=== PATIENT | female | born 1940 | race Caucasian/White ===

== ENCOUNTER → 2016-08-10 | Outpatient (REF) ==
[~2016-08-10] MED LIST: ALLEGRA 180MG180 MG PO; AMBIEN 10MG10 MG PO; ASPIRIN E.C. 8181 MG PO; CALCIUM + D 6001 TA1 PO; CELEXA 20MG20 MG/TAB PO; CLARITIN 1010 MG/TAB PO; FLONASE NASAL S16 GM NS; FOSAMAX 70MG TA70 MG PO; HCTZ 25MG TAB25 MG PO; MULTIPLE VITAMI1 TAB PO; MULTIVITAMIN FO1 CAP PO; POLY IRON PN1 TAB PO; PRILOSEC 20MG20 MG PO; SYSTANE LUBRICAN5 ML OU; TOPROL XL 25MG25 MG PO; VITAMIN D1000 IU PO; ZESTRIL40 MG PO
== END ==
LOC: ZLAB.WCH 10:45
DX: Z01.89 Encounter for other specified special examinations (principal)

== ENCOUNTER → 2016-10-29 | Outpatient (REF) ==
[2016-10-29 11:20] LABS: TOTAL IRON BINDING CAPACITY 452 ug/dL (265-497)
[2016-10-29 11:47] LABS: FERRITIN 7 ng/mL (11-264)
== END ==
LOC: ZLAB.WCH 11:00
PROVIDERS: Internal Medicine
DX: Z01.89 Encounter for other specified special examinations (principal)

== ENCOUNTER → 2017-02-04 | Outpatient (REF) | LOC: ZLAB.WCH 15:48 | DX: Z01.89 Encounter for other specified special examinations (principal) ==

== ENCOUNTER → 2017-05-12 | Outpatient (REF) | LOC: ZLAB.WCH 18:04 | DX: Z01.89 Encounter for other specified special examinations (principal) ==

== ENCOUNTER 2019-07-24 11:06 | Inpatient (IN) | payer MEDICARE ==
[~2019-07-24] VITALS: Ht 162.6 cm; Wt 69.0 kg
[2019-07-25 10:59] VITALS: BP 141/50; PULSE 62; TEMP 97.7
[2019-07-25] MEDS ORDERED: HCTZ12.5TAB PO (11:04)
[2019-07-25] MEDS ORDERED: ZESTRIL 5MG5 MG PO (11:05)
[2019-07-25] MEDS ORDERED: LOVENOX 4040 MG/0.4 SQ (11:06)
[2019-07-25] MEDS ORDERED: PROTONIX 40MG T40 MG PO (11:07)
[2019-07-25] MEDS ORDERED: LIPITOR 10MG10 MG PO (11:07)
[2019-07-25] MEDS ORDERED: MIRALAX PA17 GM/Dose PO (11:08)
[2019-07-25] MEDS ORDERED: BENADRYL25 M2 PO (11:09)
[2019-07-25] MEDS ORDERED: DULCOLAX S10 MG/SUPP RC (11:09)
[2019-07-25] MEDS ORDERED: TYLENOL 325MG325 MG PO (11:10)
[2019-07-25] MEDS ORDERED: FERRO-TIME325 MG PO (11:12)
[2019-07-25] MEDS ORDERED: NATURAL C500 MG PO (11:12)
[2019-07-25] MEDS ORDERED: ALEVE 220MG220 MG PO (11:13)
[2019-07-25] MEDS ORDERED: SINGULAIR 110 MG/TAB PO ×2 (11:13→15:51)
[2019-07-25] MEDS ORDERED: CALCIUM 600600 M2 PO (11:15)
[2019-07-25] MEDS ORDERED: VITAMIN C500 MG PO ×2 (11:15→15:50)
--- NOTE | 2019-07-25 11:20 | NUR ---
Pt arrived to room 336 at this time via WC. She is A/O x4. Her breathing is even and unlabored on RA. Pt denies SOB. She doesn't currently report any pain. No N/V. She does have some N/T to L hand, though hand plugman and leg strength is equal and strong. Pt does drag her left foot slightly when ambulating. Walks with SBA, walker and gait belt. No skin breakdown visualized. Pt had medium loose bowel movement upon arrival, reports receiving Miralax this am d/t constipation. Water and tissue supplied. Pt has no further needs at this time. Call light within reach. Will continue to monitor.
[2019-07-25] MEDS ORDERED: CALCIUM CARBON650 M2 PO (15:50)
[2019-07-25] MEDS ORDERED: CLARISPRAY9.9 ML NS (15:50)
[2019-07-25] MEDS ORDERED: ASPIRIN 32325 MG/TAB PO (15:59)
[2019-07-25] MEDS ORDERED: TOPROL XL100 MG PO (15:59)
[2019-07-25 16:23] VITALS: BP 130/68; PULSE 58; TEMP 97.7
[2019-07-25 16:24] VITALS: BP 130/68; PULSE 58; TEMP 97.7
--- NOTE | 2019-07-25 17:54 | NUR ---
Pt resting in bed, was able to get around room with minimal assistance. Ate dinner without issues. Denies any pain or needs at this time. Call light within reach.
--- NOTE | 2019-07-25 19:30 | NUR ---
PATIENT RESTING IN BED DURING CHANGE OF SHIFT REPORT FROM DAY SHIFT NURSE. BED ALARM ON.
--- NOTE | 2019-07-25 21:15 | NUR ---
PATIENT REQUESTED BENADRYL FOR SLEEP. INFORMED THAT MEDS WAS NOT ORDERED BY PROVIDER. AGREED TO TAKE TYLENOL TO HELP WITH SLEEP. BED ALARM CONTINUES.
--- NOTE | 2019-07-26 00:56 | NUR ---
PATIENT RESTING WITH EYES CLOSED, DOES NOT AWAKEN WHEN ROOM ENTERED. BREATHING NONLABORED AND EVEN. BED ALARM ON.
[2019-07-26 04:44] VITALS: BP 132/62; PULSE 62; TEMP 97.6
--- NOTE | 2019-07-26 07:10 | NUR ---
PATIENT UP IN CHAIR DURING CHANGE OF SHIFT REPORT GIVEN TO DAY SHIFT NURSE. CHAIR ALARM ON.
--- NOTE | 2019-07-26 08:13 | NUR ---
Assessment completed, alert/oriented, vital signs stable, denies pain or discomfort, heart RRR/ distal pulses are palpable, lungs CTA, patient has mild left sided weakness / more noteable to lower extrm., she reports it is more of a gait/coordination issue as oppose to strength deficit, no other Neuro deficits noted, she is sitting up in the chair and has eaten breakfast, she has taken a.m meds and is now waiting to start therapies for the day, denies other needs at this time
--- NOTE | 2019-07-26 10:09 | NUR ---
RAMON met with the patient and her daughter, Nimo Aranda (ph#[phone]), to complete initial intake, as the patient is new to [facility]. The patient lives alone in [place]. Nimo states that she lives two miles away from her. The patient reports independence with ADLs before hospitalization and has a FWW and shower seat. The patient's PCP is Dr. Bernice Gardner and she receives her medications at [facility] or through a mail order. She reports no difficulties obtaining her meds. The patient's advanced directives are in EMR. Her DPOA-HC is her daughter, Nimo. SW to continue to follow to ensure a safe discharge.
--- NOTE | 2019-07-26 15:10 | NUR ---
RAMON met with the patient to present and review the IPR Team Conference Note. RAMON discussed the team's recommendation to re-eval next Wednesday with a tentative discharge date set for next Wednesday, 08/03, with likely outpatient services, but to still be determined. The patient was in agreeance to the plan. RAMON also discussed the team's recommendations of grab bars and possibly a cane. The patient verbalized understanding. RAMON then discussed setting up a patient/family meeting. The patient reports that her daughter, Nimo, is off next Wednesday and that Wednesday should work the best. A patient/family meeting was tentatively scheduled for next Wednesday, 08/01, at 1345. RAMON notified [facility] to follow up with the patient tomorrow to confirm meeting.
[2019-07-26 18:04] VITALS: BP 112/60; PULSE 60; TEMP 98.6
--- NOTE | 2019-07-26 19:00 | NUR ---
PATIENT UP IN CHAIR DURING CHANGE OF SHIFT REPORT FROM DAY SHIFT NURSE. CHAIR ALARM ON.
--- NOTE | 2019-07-27 | NUR ---
PATIENT SLEEPING, EYES CLOSED, DOES NOT AWAKEN WHEN DOOR TO ROOM OPENS, BREATHING NONLABORED AND EVEN. BED ALARM ON.
--- NOTE | 2019-07-27 04:00 | NUR ---
Patient sleeping, breathing nonlabored and even. Does not awaken when door to room opens. Bed alarm on.
[2019-07-27 04:27] VITALS: BP 130/58; PULSE 64; TEMP 97.2
--- NOTE | 2019-07-27 07:39 | NUR ---
Patient put up in recliner chair during change of shift report given to day shift nurse. Chair alarm on.
--- NOTE | 2019-07-27 10:05 | NUR ---
RAMON met with the patient and she confirmed that a patient/family meeting would work for her daughter next Wednesday, 08/01, at 1345. RAMON to continue to follow.
--- NOTE | 2019-07-27 11:48 | NUR ---
Bedside report from JULIAN Domínguez. 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 Denies dizziness. Takes pills whole one at a time with applesauce. Dentures and glasses in place, yellow gripper socks. Calls appropriately.
[2019-07-27 15:52] VITALS: BP 111/58; PULSE 56; TEMP 97.8
--- NOTE | 2019-07-27 19:56 | NUR ---
Pt had visitors today, denies pain, amb CGA with walker. Report to JULIAN Nicholas.
--- NOTE | 2019-07-27 21:00 | NUR ---
Shift assessment complete. Patient ambulated to BR with walker, gait belt, and assist x1. Denies pain. Daughter at bedside, helping her get ready for bed. Back to bed, SCD's on. Denies further needs at this time. Will continue to monitor.
--- NOTE | 2019-07-27 21:20 | NUR ---
Admission QIM scores were reviewed by the team. Code of 5 for eating was determined by team discussion to be the most usual performance before interventions for this patient during the assessment period. Code of 6 for oral hygiene was determined by team discussion to be the most usual performance before interventions for this patient during the assessment period. Code of 3 for toilet transfers was determined by team discussion to be the most usual performance before interventions for this patient during the assessment period. Code of 3 for sit to stand was determined by team discussion to be the most usual performance before interventions for this patient during the assessment period. Code of 3 for chair/bed to chair transfers was determined by team discussion to be the most usual performance before interventions for this patient during the assessment period. Code of 3 for walking 10 feet was determined by team discussion to be the most usual performance before interventions for this patient during the assessment period. Code of 88 for walking 150 feet was determined by team discussion to be the most usual performance before interventions for this patient during the assessment period. Code of 4 for toileting hygiene, lower body dressing, putting on/taking off footwear, rolling left to right, sit to lying, lying to sitting side of bed, and car transfers was determined by team discussion to be the most usual performance before interventions for this patient during the assessment period.
[2019-07-28 06:19] VITALS: BP 121/58; PULSE 60; TEMP 98.1
--- NOTE | 2019-07-28 11:12 | NUR ---
Pt denies pain, takes pills whole with applesauce, one at a time. Family visiting, daughter Nimo and granddaughter (18yo).
--- NOTE | 2019-07-28 14:08 | NUR ---
The patient's RN informed RAMON that the team is now anticipating that the patient will be able to discharge sooner than Wednesday. The patient's daughter, Nimo, would like to move up the family meeting to Wednesday, 07/30, at 1430. RAMON notified Beth WIGGINS, of this. The patient would also like to receive outpatient PT/OT at [facility]. RAMON will need to schedule appointments and will continue to follow.
[2019-07-28 16:51] VITALS: BP 97/75; PULSE 64; TEMP 98
--- NOTE | 2019-07-28 17:13 | NUR ---
Pt edu on being mod I in room tomorrow, verbalized understanding, no needs at this time. Informed of PCP appt and left msg for OP PT at [facility].
--- NOTE | 2019-07-28 19:24 | NUR ---
Bedside report to JULIAN Vasquez. Pt in chair, denies pain, shoes in place, male visitor.
[2019-07-28 20:00] VITALS: BP 133/58; PULSE 69; TEMP 98.6
--- NOTE | 2019-07-28 20:00 | NUR ---
Patient sitting up in recliner. Alert and oriented x 3. Assessment complete. Stand by assist to restroom. Patient dressed independently. Independent oral care. Steady gait with walker. Denies further needs at this time.
--- NOTE | 2019-07-29 03:39 | NUR ---
Patient has slept well throughout the night. Minimal needs.
[2019-07-29 04:58] VITALS: BP 128/72; PULSE 60; TEMP 97.8
--- NOTE | 2019-07-29 05:00 | NUR ---
pt handoff to this nurse around 0400. pt vss, has been sleeping. call light within reach, will continue to monitor
--- NOTE | 2019-07-29 08:47 | NUR ---
PT IS MOD I IN ROOM WITH HER WALKER. PT IS INDEPENDENT WITH ADLS. NO PAIN AND VSS. TAKES MEDS EASILY WITH APPLESAUCE.
--- NOTE | 2019-07-29 16:32 | NUR ---
PT HAS HAD FAMILY HERE AFTER THERAPY UNTIL ABOUT 1400. SHE HAS HAD NO PAIN OR NEEDS FROM THE NURSE. ROUNDS EVERY HOUR EXCEPT WITH HER COMPANY PRESENT. PT IS MOD I IN HER ROOM. HER GAIT IS PRETTY STEADY.
[2019-07-29 16:47] VITALS: BP 135/58; PULSE 56; TEMP 98.4
[2019-07-30 05:04] VITALS: BP 104/62; PULSE 64; TEMP 97.1
--- NOTE | 2019-07-30 05:22 | NUR ---
PT STATED SHE HAD A VERY RESTFUL NIGHT. TYLENOL FOR GENERAL DISCOMFORT. PT A&Ox3. PT HAD BEEN INDEPENDENT IN HER ROOM MOST OF THE SHIFT.
--- NOTE | 2019-07-30 18:00 | NUR ---
Patient has been doing well. Denies pain and nausea. She continues to have slight left sided weakness. She is getting around well with a walker. No other changes at this time. Call light within reach.
[2019-07-30 18:06] VITALS: BP 131/59; PULSE 14; TEMP 97.8
--- NOTE | 2019-07-30 19:00 | NUR ---
PATIENT UP IN CHAIR DURING CHANGE OF SHIFT REPORT. CHAIR ALARM ON. DENIES ANY NEEDS AT TIME OF REPORT.
--- NOTE | 2019-07-31 02:00 | NUR ---
PATIENT RESTING WITH EYES CLOSED, DOES NOT AWAKEN WHEN DOOR TO ROOM OPENED, BREATHING NONLABORED AND EVEN.
[2019-07-31 04:13] VITALS: BP 119/56; PULSE 58; TEMP 97.7
--- NOTE | 2019-07-31 08:05 | NUR ---
PATIENT UP IN CHAIR DURING CHANGE OF SHIFT REPORT GIVEN TO DAY SHIFT NURSE. PATIENT CONTINUES TO BE UP IN ROOM/HALLS INDEPENDENTLY WITH NO PROBLEMS
--- NOTE | 2019-07-31 10:24 | NUR ---
Patient was very talkative this morning. Denied pain. She was able to take pills independently, but takes with applesauce. She is independent in her room and uses her walker. Denies any questions at this time.
[2019-07-31 11:30] VITALS: BP 144/76; PULSE 59
--- NOTE | 2019-07-31 11:34 | NUR ---
Patient reported feeling slightly dizzy and thinks her blood sugar might have dropped. She says sometimes that happens to her. She was given peanut butter and crackers and is currently resting in recliner with OTTessy at her side. VSS at this time.
--- NOTE | 2019-07-31 14:47 | NUR ---
A Family Conference was conducted with pt & pt's daughter. Also present was PT, OT, ST, & Director Intelligence Analysis Programs. Director Intelligence Analysis Programs started by explaining the purpose of the meeting. The therapists explained how pt has been functioning & making good progress. Informed them of the team is looking to d/c her on 08/02/19 w/ recommendations for outpatient PT/OT. Pt inquired if she could do her therapy at [facility], which told her she can. She also asked about driving, which we told her would be left up to her PCP on follow up. Pt & daughter was find with this plan. They asked questions which team answered. Pt & daughter are pleased with progress & care pt is receiving.
--- NOTE | 2019-07-31 15:09 | NUR ---
The patient is to have outpatient physical therapy and occupational therapy at [facility] at the [facility] at 0900 on , 08/02. The patient, the patient's daughter and the team were agreeable to this time and date. [facility] (p#[phone]) (f# [phone]). RAMON faxed facesheet, HNP and PT/OT notes to [facility]. security services specialist will continue to follow.
[2019-07-31 16:51] VITALS: BP 141/82; PULSE 62; TEMP 98.2
--- NOTE | 2019-07-31 19:00 | NUR ---
PATIENT UP IN CHAIR DURING CHANGE OF SHIFT REPORT FROM DAY SHIFT NURSE. CONTINUES TO BE UP INDEPENDENTLY IN ROOM.
--- NOTE | 2019-08-01 01:41 | NUR ---
PATIENT RESTING WITH EYES CLOSED, DOES NOT AWAKEN WHEN DOOR TO ROOM OPENED, BREATHING NONLABORED AND EVEN. UP INDEPENDENTLY IN ROOM WITHOUT ANY REPORTED PROBLEMS.
[2019-08-01 04:10] VITALS: BP 110/52; PULSE 68; TEMP 98.4
--- NOTE | 2019-08-01 07:38 | NUR ---
PATIENT RESTING IN BED DURING CHANGE OF SHIFT REPORT GIVEN TO DAY SHIFT NURSE. PATIENT UP INDEPENDENTLY IN ROOM WITHOUT PROBLEMS OR CONCERNS.
[2019-08-01 08:02] VITALS: BP 130/68; PULSE 66
--- NOTE | 2019-08-01 10:02 | NUR ---
Patient working with therapy this morning. Educated patient on the benefit of taking her blood pressure at home prior to taking her blood pressure meds and logging them in a book. Also educated her on the need to provid this information to her PCP so that the provider is able to make more accurate decisions on her cares. She voiced understanding and would have her daughter pickler helper a blood pressure cuff for her. Patient is still planning on being discharged on Wednesday. Patient denies pain this morning. Is independent on her grooming and eating this am. Will continue to monitor.
--- NOTE | 2019-08-01 10:30 | NUR ---
Follow-up visit; Patient thanked Document Control Coordinator for offering spiritual care this morning.
--- NOTE | 2019-08-01 14:57 | NUR ---
Patient resting in recliner at this time and is independent in her room with a walker. She attended all therapies today and has tolerated diet well. Denies any pain this shift.
--- NOTE | 2019-08-01 16:12 | NUR ---
Planning And Analysis Manager met with patient as she will discharge tomorrow. SW presented and explained IM form to patient who verbalized understanding then provided signature. SW placed original in chart and provided copy to patient. Patient denies any questions or concerns at this time.
[2019-08-01 17:04] VITALS: BP 124/59; PULSE 65; TEMP 98
[2019-08-01 21:25] VITALS: BP 136/62; PULSE 67
--- NOTE | 2019-08-01 23:46 | NUR ---
PATIENT SLEEPING WHEN DOOR TO ROOM OPENED, DOES NOT AWAKEN, BREATHING NONLABORED AND EVEN. UP INDEPENDENTLY IN ROOM WITH NO PROBLEMS
--- NOTE | 2019-08-02 02:49 | NUR ---
PATIENT SLEEPING, DOES NOT AWAKEN WHEN DOOR TO ROOM OPENS, BREATHING NONLABORED AND EVEN. UP IN ROOM INDEPENDENTLY WITH NO COMPLAINTS OR PROBLEMS, EXPECTING TO BE DISMISSED LATER TODAY TO HOME WITH OUTPATIENT THERAPIES.
--- NOTE | 2019-08-02 03:48 | NUR ---
PATIENT SLEEPING, DOES NOT AWAKEN WHEN DOOR TO ROOM OPENS BY DINKEY SKINNER, BREATHING NONLABORED AND EVEN. PATIENT UP INDEPENDENTLY WITHOUT PROBLEMS.
[2019-08-02 04:12] VITALS: BP 126/55; PULSE 57; TEMP 98.1
--- NOTE | 2019-08-02 07:26 | NUR ---
Patient up in chair during change of shift report given to day shift nurse. Patient expecting to be dismissed today. No further needs reported currently.
--- NOTE | 2019-08-02 07:30 | NUR ---
Bedside shift report received from JULIAN Domínguez. pT in chair at side of bed resting with no needs, will continue to monitor.
--- NOTE | 2019-08-02 09:00 | NUR ---
Assessment charted. Pt anticipating discharge today, feeling well, denies pain or other needs, will ocntinue to monitor.
--- NOTE | 2019-08-02 11:24 | NUR ---
Pt discharge completed at this time. REviewed dishcarge packet, answered all questions, reviewed f/u appiontments and med changes. Pt left wtih all belongings, escorted out via w/c with IPR staff. Daughter to drive home, criteria met.
--- NOTE | 2019-08-02 11:37 | NUR ---
Petroleum Refinery Laborer faxed orders to [facility]. Patient to discharge home today.
--- NOTE | 2019-08-02 13:20 | NUR ---
Called Pt with time for OP carotid US and Echo on 08/10/[address] Cramer request
== END 2019-08-02 11:15 | disposition home or self-care (01) | DRG 57 ==
PROVIDERS: ADMIT Internal Medicine
DX: I69.954 Hemiplegia and hemiparesis following unspecified cerebrovascular disease affecting left non-dominant side (principal); I69.992 Facial weakness following unspecified cerebrovascular disease; I10 Essential (primary) hypertension; F32.9 Major depressive disorder, single episode, unspecified; G47.00 Insomnia, unspecified; K21.9 Gastro-esophageal reflux disease without esophagitis; Z79.82 Long term (current) use of aspirin; Z79.1 Long term (current) use of non-steroidal anti-inflammatories (NSAID)
CPT/HCPCS: 99222-AI; 99231-AI; 99232-AI; 99239; J1650